=== PATIENT | male | born 1970 | race Caucasian/White ===

== ENCOUNTER 2023-07-06 13:47 | Emergency (ER) | payer BC, SELFPAY ==
[2023-07-06 13:47] VITALS: BP 154/102; PULSE 75; RESP 18; TEMP 36.2; O2SAT 98
--- NOTE | 2023-07-06 14:01 | ED.UPPEXIN ---
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 It slipped and hit the back of his left hand causing laceration and bleeding. Laceration is superficial but patient has some swelling on the dorsal aspect of his hand. complaint: injury to: left and hand Onset (ago): minute(s) (20) Other injuries: none Handedness: right Place: home Severity: moderate Relieving factors: rest Exacerbating factors: movement of extremity Associated symptoms: denies other symptoms Treatments prior to arrival: bandage Related Data Allergies Allergy/AdvReac Type Severity Reaction Status Date / Time No Known Allergies Allergy Verified 07/06/23 13:52 Review of Systems Review of Systems: All systems reviewed & are unremarkable except as noted in HPI and below PMFSH Past Medical History Medical History (Updated 07/06/23 @ 14:16 by Favian Jones MD) No active medical problems Surgical History Surgical History (Updated 07/06/23 @ 14:15 by Favian Jones MD) No pertinent past surgical history Social History Social History (Updated 07/06/23 @ 14:15 by Favian Jones MD) Smoking packs per day: 1 Smoking cigarettes per day: 20.0 Smoking status: Current every day smoker Tobacco type: cigarettes Exam Const: General: healthy appearing, no acute distress and alert Nutritional Appearance: well nourished Orientation/consciousness: patient oriented x3 Limitations: no limitations HENMT: Head: normal to inspection Ears: external ears normal Face/Nose/Sinus: Normal external nose present Face and sinus: normal facial exam Mouth: Yes moist mucous membranes Eyes: Conjunctivae: conjunctivae normal Pupils: Equal, round and reactive pupils present EOM: EOMs intact bilaterally Neck: Neck: normal visual inspection Resp: Effort & Inspection: normal respiratory effort Auscultation: clear to auscultation bilaterally Cardio: Rate: regular rate Rhythm: regular rhythm GI: GI Palp: Yes Soft to palpation and No Tenderness to palpation present (GI) Auscultation: normal bowel sounds Back/Spine/Pelvis: Cervical Spine: cervical ROM normal Thoracic/Lumbar Spine: thoraco-lumbar ROM normal Skin: General skin exam: normal color Rashes: no rashes Wounds: wounds noted laceration left dorsal hand size (2 cm) Other: left hand I was able to milk and express crepitus air from the soft tissue through the wound. This was done several times in attempt to decrease the amount of air pockets left in the soft tissue. Was painful for the patient but he tolerated it well. No evidence of compartment syndrome at this time. Neuro: General: patient oriented x3, moves all extremities, no focal motor deficits and CN's II-XI intact bilaterally Speech: normal speech Gait exam (Neuro): Normal gait present Extrem: General: no clubbing, cyanosis or edema Left upper extremity: hand normal capillary refill, neuromotor exam normal and tenderness of the dorsal hand Psych: Mental Status: mental status grossly normal Affect: normal affect Attitude: cooperative Course Vital Signs Vital signs: Vital Signs Temperature 36.2 C L 07/06/23 13:47 Pulse Rate 75 07/06/23 13:47 Respiratory Rate 18 07/06/23 13:47 Blood Pressure 154/102 H 07/06/23 13:47 Pulse Oximetry 98 07/06/23 13:47 Oxygen Delivery Room Air 07/06/23 13:47 Temperature 36.2 C L 07/06/23 13:47 Pulse Rate 75 07/06/23 13:47 Respiratory Rate 18 07/06/23 13:47 Blood Pressure 154/102 H 07/06/23 13:47 Pulse Oximetry 98 07/06/23 13:47 Oxygen Delivery Room Air 07/06/23 13:47 Procedures Laceration Laceration 1: Date: 07/06/23 Site:
[2023-07-06] MEDS: TETANUS,DIPHTHERIA,AC PERTUSSIS ADULT 0.5 ML (ADACEL) IM (14:14)
== END 2023-07-06 14:33 | disposition home or self-care (01) ==
PROVIDERS: Emergency Provider Emergency Medicine
DX: S61.412A Laceration without foreign body of left hand, initial encounter (principal); F17.210 Nicotine dependence, cigarettes, uncomplicated; Z23 Encounter for immunization; W29.8XXA Contact with other powered hand tools and household machinery, initial encounter; Y92.009 Unspecified place in unspecified non-institutional (private) residence as the place of occurrence of the external cause
CPT/HCPCS: 12001; 90471; 90715; 99283

== ENCOUNTER 2024-07-14 06:21 | Emergency (ER) | payer BC, SELFPAY ==
[2024-07-14] VITALS (16 sets, daily range): BP systolic 150–200; BP diastolic 81–105; PULSE 62; RESP 18–20; TEMP 36.3–36.7; O2SAT 97–100
--- NOTE | ~2024-07-14 | CT_ITS ---
EXAMINATION: CT abdomen pelvis wo con DATE: 07/14/2024 07:43 INDICATION: Right groin pain TECHNIQUE: Computed tomography (CT) of the abdomen and pelvis was performed without intravenous contr ast. The dose-length product was 406.89 mGy-cm. Automated exposure control and iterative reconstructi on technique were employed. COMPARISON: CT dated 05/12/2013 FINDINGS: Calcified granulomas of the right lower lobe. Dependent atelectasis. Heart size normal. No significant pleural or pericardial effusion. Calcified granuloma of the spleen. The liver, pancreas, adrenal glands are unremarkable. There is mild right hydronephrosis with perinephric edema. No obstru cting stones are identified. Nonobstructive bowel gas pattern. No free air or free fluid. No abnormal pelvic masses or fluid collections. There are small bladder stones. IMPRESSION: 1. Small bladder stones, possibly recently passed mild right hydronephrosis. Reviewed, dictated and finalized at location B.
--- NOTE | 2024-07-14 06:25 | PC.NURSE ---
ERP aware of high blood pressure. will continue to monitor
[2024-07-14 07:12] LABS: Basophils Absolute Auto 0.03 K/mm3 (0.00-0.10); Basophils Percent Auto 0.3 % (0.0-1.0); Eosinophils Absolute Auto 0.02 K/mm3 (0.02-0.50); Eosinophils Percent Auto 0.2 % (1.0-6.0); Hematocrit 55.4 % (40.0-54.0); Immature Granulocyte Absolute 0.05 K/mm3 (0.00-0.00); Immature Granulocyte Percent A 0.4 % (0.0-0.0); Lymphocytes Absolute Auto 1.49 K/mm3 (1.10-4.50); Lymphocytes Percent Auto 12.6 % (18.0-42.0); Mean Corpuscular HGB Conc 32.5 g/dL (32-36); Mean Corpuscular Hemoglobin 30.9 pg (27.0-31.0); Mean Corpuscular Volume 95.2 fL (78.0-102.0); Mean Platelet Volume 10.3 fl (8.7-11.0); Monocytes Absolute Auto 0.62 K/mm3 (0.10-0.90); Monocytes Percent Auto 5.3 % (2.0-11.0); Neutrophils Absolute Auto 9.57 K/mm3 (1.70-7.20); Neutrophils Percent Auto 81.2 % (50.0-70.0); Platelet Count Result 217 K/mm3 (150-420); Red Blood Count 5.82 M/mm3 (4.70-6.10); Red Cell Distribution Width 13.5 % (11.6-14.4); White Blood Count 11.8 K/mm3 (4.8-10.8)
[2024-07-14 07:19] LABS: Add Urine Microscopic? YES; Appearance Urine Clear (Clear); Bilirubin Urine Negative (Negative); Blood Urine 1+ (Negative); Color Urine Yellow (Yellow); Glucose Urine UA Negative (Negative); Ketones Urine Negative (Negative); Leukocyte Esterase Ur Negative LEU/UL (Negative); Nitrate Urine Negative (Negative); Protein Urine Negative (Negative); Specific Grav Ur >= 1.030 (1.010-1.020); Urobilinogen Urine 0.2 mg/dL (0.2-1.0); pH Urine 5.5 (5.0-8.0)
[2024-07-14 07:20] LABS: Bacteria Urine Trace /hpf; WBC Urine None seen /hpf (0-3)
[2024-07-14 07:29] LABS: Alanine Aminotransferase 20 U/L (16-63); Alkaline Phosphatase 97 U/L (46-116); Anion Gap 11 mmol/L (4-12); Aspartate Amino Transferase 27 U/L (15-37); Bilirubin,Total 0.6 mg/dL (0.00-1.00); Blood Urea Nitrogen 13 mg/dL (7-18); Calcium 9.3 mg/dL (8.5-10.1); Carbon Dioxide 23 mmol/L (21-32); Chloride 103 mmol/L (98-108); Estimated CRCL calculation 66 ml/min; Estimated Glomerular Filt Rate > 60; Glucose 130 mg/dL (70-99); Lipase 35 U/L (16-77); Osmolality Calculated 286 mOsm/kg (285-295); Potassium 4.3 mmol/L (3.5-5.1); Sodium 137 mmol/L (136-145); Total Protein 7.7 g/dL (6.4-8.2)
[2024-07-14 07:32] LABS: Lactic Acid Reflex 1.5 mmol/L (0.4-2.0)
[2024-07-14] MEDS: SODIUM CHLORIDE 0.9% IV 1,000 ML 999 ML IV CONT (07:44)
--- NOTE | 2024-07-14 08:03 | ED.MALEGU ---
HPI - Male Genitourinary General Chief complaint: Urogenital-Male Stated complaint: right side flank pain Time Seen by Provider: 07/14/24 06:38 Source: patient Mode of arrival: ambulatory Limitations: no limitations History of Present Illness HPI Narrative: this is a 54-year-old male with no significant past medical history except for a remote kidney stone approximately 11 years ago presents with right flank pain radiating to his right groin area no fever chills no dysuria no hematuria no nausea vomiting. Patient initially came in with some pain level about a 10/10 and then felt like a stone had migrated and his pain levels that were 2/10. Onset (ago): hour(s) Duration: improved Location: right testicle Related Data Allergies Allergy/AdvReac Type Severity Reaction Status Date / Time No Known Allergies Allergy Verified 07/06/23 13:52 Review of Systems Review of Systems: All systems reviewed & are unremarkable except as noted in HPI and below PMFSH Past Medical History Medical History No active medical problems Surgical History Surgical History No pertinent past surgical history Social History Social History Smoking packs per day: 1 Smoking cigarettes per day: 20.0 Smoking status: Current every day smoker Tobacco type: cigarettes Exam Const: General: healthy appearing and no acute distress Nutritional Appearance: well nourished Limitations: no limitations Chest: Chest palpation & inspection: normal inspection of the chest Resp: Effort & Inspection: normal respiratory effort Auscultation: clear to auscultation bilaterally Cardio: Rate: regular rate Rhythm: regular rhythm : General: Yes bladder normal to palpation Back/Spine/Pelvis: Back: CVA tenderness Skin: General skin exam: normal color Rashes: no rashes Neuro: General: patient oriented x3, moves all extremities and no meningeal signs Course Course Emergency Course: CT scan does show a stone in the bladder that apparently had migrated and with no hydronephrosis. UA shows some red blood cells a blood pressure and vitals are stable patient received IV fluids. Vital Signs Vital signs: Vital Signs Temperature 36.3 C L 07/14/24 06:24 Pulse Rate 62 07/14/24 06:24 Respiratory Rate 18 07/14/24 06:24 Blood Pressure 183/99 H 07/14/24 06:24 Pulse Oximetry 98 07/14/24 06:24 Oxygen Delivery Room Air 07/14/24 06:24 Temperature 36.7 C 07/14/24 07:56 Pulse Rate 62 07/14/24 07:56 Respiratory Rate 20 07/14/24 07:56 Blood Pressure 156/87 H 07/14/24 07:56 Pulse Oximetry 99 07/14/24 07:56 Oxygen Delivery Room Air 07/14/24 07:56 MDM - Male Genitourinary Lab Data 07/14/24 07:05 07/14/24 07:05 Labs: Lab Results 07/14/24 07/14/24 Range/Units 06:45 07:05 WBC 11.8 H (4.8-10.8) K/mm3 RBC 5.82 (4.70-6.10) M/mm3 Hgb 18.0 (14.0-18.0) g/dL Hct 55.4 H (40.0-54.0) % MCV 95.2 (78.0-102.0) fL MCH 30.9 (27.0-31.0) pg MCHC 32.5 (32-36) g/dL RDW 13.5 (11.6-14.4) % Plt Count 217 (150-420) K/mm3 MPV 10.3 (8.7-11.0) fl Immature Gran % (Auto) 0.4 H (0.0-0.0) % Neut % (Auto) 81.2 H (50.0-70.0) % Lymph % (Auto) 12.6 L (18.0-42.0) % [place] % (Auto) 5.3 (2.0-11.0) % Eos % (Auto) 0.2 L (1.0-6.0) % Baso % (Auto) 0.3 (0.0-1.0) % Lymph # (Auto) 1.49 (1.10-4.50) K/mm3 [place] # (Auto) 0.62 (0.10-0.90) K/mm3 Eos # (Auto) 0.02 (0.02-0.50) K/mm3 Baso # (Auto) 0.03 (0.00-0.10) K/mm3 Abs Immat Gran (auto) 0.05 H (0.00-0.00) K/mm3 Absolute Neuts (auto) 9.57 H (1.70-7.20) K/mm3 Absolute Nucleated RBC 0.00 (0.00-0.00) K/mm3 Nucleated RBC % 0.0 (0-0.0) % Sodium 137 (136-145) mmol/L Potassium 4.3 (3.5-5.1) mmol/L Chloride 103 (9
== END 2024-07-14 08:39 | disposition home or self-care (01) ==
PROVIDERS: Emergency Medicine; Emergency Provider Emergency Medicine
DX: N21.8 Other lower urinary tract calculus (principal); F17.210 Nicotine dependence, cigarettes, uncomplicated
CPT/HCPCS: 36415; 74176; 80053; 81001; 83605; 83690; 85025; 96360; 99284; J7030